=== PATIENT | female | born 1985 | race Caucasian/White ===

== ENCOUNTER → 2016-07-13 | Outpatient (CLI) | payer BC ==
[~2016-07-13] MED LIST: IBU-8800 MG PO; MOTRIN800 MG PO; NUVARING1 ICR; PREDNICOT20 MG PO; ROBAXIN750 MG PO; TEGRETOL-XR 10100 MG; VICODIN 5/500 505 MG PO; VOLTAREN50 M1 PO; [UNRECOGNIZED DRUG - CODE]
== END | disposition home or self-care (01) ==
LOC: RAD 10:27
DX: R05 Cough (principal); R09.89 Other specified symptoms and signs involving the circulatory and respiratory systems; F17.200 Nicotine dependence, unspecified, uncomplicated

== ENCOUNTER 2017-06-25 20:08 | Emergency (ER) | payer BC ==
[~2017-06-25] VITALS: Ht 165.1 cm; Wt 90.7 kg
[2017-06-25] MEDS ORDERED: PAXIL20 M1 PO (20:13)
[2017-06-25] MEDS ORDERED: VALTREX1000 MG PO (20:13)
[2017-06-25] MEDS ORDERED: OMEPRAZOLE20 M2 PO (20:15)
[2017-06-25 20:34] LABS: BASO % 0.4 % (0.0-1.0); EOS # 0.4 10*3/uL (0.0-0.4); EOS % 4.2 % (1.0-4.0); HEMOGLOBIN 12.7 g/dl (12.0-16.0); LYMPH # 3.4 10*3/uL (1.3-4.4); LYMPH % 36.8 % (27.0-41.0); MEAN CELL VOLUME 102.4 fl (81.0-99.0); MEAN CORPUSCULAR HGB 34.2 pg (27.0-31.0); MEAN CORPUSCULAR HGB CONC 33.4 g/dl (33.0-37.0); MEAN PLATELET VOLUME 10.2 fl (9.6-12.3); MONO # 0.7 10*3/uL (0.1-1.0); MONO % 7.5 % (3.0-9.0); NEUT # 4.7 10*3/uL (2.3-7.9); NEUT % 50.9 % (47.0-73.0); PLATELET COUNT AUTOMATED 310 10*3/uL (130-400); RED BLOOD COUNT 3.71 10*6/uL (4.10-5.10); RED CELL DISTRI WIDTH 12.8 % (0-14.5); WHITE BLOOD COUNT 9.3 10*3/uL (4.8-10.8)
[2017-06-25 20:52] LABS: BILIRUBIN NEGATIVE (NEGATIVE); BLOOD NEGATIVE (NEGATIVE); CLARITY SL CLOUDY (CLEAR); COLOR YELLOW (YELLOW); GLUCOSE NEGATIVE (NEGATIVE); KETONE NEGATIVE (NEGATIVE); LEUKO ESTERASE NEGATIVE (NEGATIVE); NITRITE NEGATIVE (NEGATIVE); SPECIFIC GRAVITY 1.015 (1.005-1.030); UROBILINOGEN 0.2 E.U./dl (0.2-1.0)
[2017-06-25 21:02] LABS: BACTERIA 1+; RBC 0-2 rbc/hpf (0-2)
[2017-06-25 21:08] LABS: ALBUMIN 3.4 gm/dl (3.1-4.5); ALKALINE PHOSPHATASE 80 U/L (45-117); BUN 9 mg/dl (7-24); CHLORIDE 108 mmol/L (98-107); CREATININE 0.65 mg/dL (0.55-1.02); LIPASE 222 U/L (73-393); POTASSIUM 3.6 mmol/L (3.5-5.1); SGOT/AST 24 IU/L (3-35); SGPT/ALT 37 U/L (12-78); SODIUM 142 mmol/L (136-145); TOTAL PROTEIN 6.2 gm/dL (6.4-8.2)
[2017-06-25] MEDS ORDERED: ZOFRAN ODT4 MG SL (23:13)
[2017-06-25] MEDS ORDERED: KETOROLAC10 MG PO (23:13)
== END 2017-06-25 23:31 | disposition home or self-care (01) ==
LOC: ED 20:08
PROVIDERS: Physician Assistant
DX: R10.9 Unspecified abdominal pain (principal); Z79.899 Other long term (current) drug therapy

== ENCOUNTER → 2022-03-04 | Outpatient (CLI) | payer OTHER ==
[~2022-03-04] MED LIST changes: +KETOROLAC10 MG PO; +OMEPRAZOLE20 M2 PO; +PAXIL20 M1 PO; +VALTREX1000 MG PO; +ZOFRAN ODT4 MG SL
== END | disposition home or self-care (01) ==
LOC: RAD 13:58
PROVIDERS: ATTEND Psychiatry & Neurology Neurology
DX: Z13.820 Encounter for screening for osteoporosis (principal); N95.9 Unspecified menopausal and perimenopausal disorder; Z79.899 Other long term (current) drug therapy; Z91.89 Other specified personal risk factors, not elsewhere classified

== ENCOUNTER → 2022-03-29 | Outpatient (CLI) | payer OTHER | END | disposition home or self-care (01) | LOC: CARD 04:16 | PROVIDERS: ATTEND Psychiatry & Neurology Neurology | DX: Z13.6 Encounter for screening for cardiovascular disorders (principal); R91.1 Solitary pulmonary nodule; J84.10 Pulmonary fibrosis, unspecified; E85.1 Neuropathic heredofamilial amyloidosis ==

== ENCOUNTER → 2022-03-30 | Outpatient (CLI) | payer OTHER | END | disposition home or self-care (01) | LOC: LAB 01:46 → MRI 15:00 | PROVIDERS: ATTEND Psychiatry & Neurology Neurology | DX: Z13.6 Encounter for screening for cardiovascular disorders (principal); Q85.1 Tuberous sclerosis; G93.89 Other specified disorders of brain; N95.9 Unspecified menopausal and perimenopausal disorder; Z91.89 Other specified personal risk factors, not elsewhere classified; Z79.899 Other long term (current) drug therapy ==

== ENCOUNTER → 2022-08-18 | Outpatient (CLI) | payer OTHER | END | disposition home or self-care (01) | LOC: MAMMO 01:52 | PROVIDERS: ATTEND Nurse Practitioner Women's Health | DX: N63.14 Unspecified lump in the right breast, lower inner quadrant (principal); R92.8 Other abnormal and inconclusive findings on diagnostic imaging of breast; N63.11 Unspecified lump in the right breast, upper outer quadrant ==

== ENCOUNTER → 2022-08-30 | Outpatient (CLI) | payer OTHER | END | disposition home or self-care (01) | LOC: SDC 11:00 → EDSTATUS 11:00 | PROVIDERS: ATTEND Nurse Practitioner Women's Health | DX: N63.11 Unspecified lump in the right breast, upper outer quadrant (principal); N60.11 Diffuse cystic mastopathy of right breast ==

== ENCOUNTER 2023-12-06 14:30 | Emergency (ER) | payer BC ==
[~2023-12-06] VITALS: Ht 162.5 cm; Wt 106.6 kg
[2023-12-06] MEDS ORDERED: PAXIL40 M1 PO (14:47)
[2023-12-06] MEDS ORDERED: Cyclobenzaprine Hydrochlorid 10 MG TAB PO ONE (15:30)
[2023-12-06] MEDS ORDERED: CYCLOBENZAPRINE10 MG PO (17:16)
[2023-12-06] MEDS ORDERED: MELOXICAM15 MG PO (17:16)
[2023-12-06] MEDS ORDERED: Acetaminophen/Oxycodone 5 MG/325 MG TABLET PO ONE (17:20)
== END 2023-12-06 17:27 | disposition home or self-care (01) ==
LOC: ED 14:30
DX: M62.830 Muscle spasm of back (principal); M54.6 Pain in thoracic spine; R10.9 Unspecified abdominal pain; M54.50 Low back pain, unspecified; Z88.1 Allergy status to other antibiotic agents; Z79.899 Other long term (current) drug therapy